=== PATIENT | female | born 1945 | race Caucasian/White ===

== ENCOUNTER 2017-03-13 21:11 | Emergency (ER) | payer OTHER ==
[~2017-03-13] VITALS: Ht 157.5 cm; Wt 63.5 kg
[2017-03-13 21:27] VITALS: Ht 157.5 cm; Wt 63.5 kg
[2017-03-14 01:23] VITALS: BP 103/57
== END 2017-03-14 01:23 | disposition home or self-care (01) ==
LOC: ED 21:11
DX: S82.64XA Nondisplaced fracture of lateral malleolus of right fibula, initial encounter for closed fracture (principal); I10 Essential (primary) hypertension; E11.9 Type 2 diabetes mellitus without complications; Z88.0 Allergy status to penicillin; X50.1XXA Overexertion from prolonged static or awkward postures, initial encounter; Y93.89 Activity, other specified; Y99.8 Other external cause status; Y92.89 Other specified places as the place of occurrence of the external cause